=== PATIENT | female | born 1985 | race Caucasian/White ===

== ENCOUNTER → 2017-12-22 10:21 | Outpatient (CLI) | payer SELFPAY ==
[2017-12-22 11:12] LABS: Hematocrit 32.5 % (37-47); Hemoglobin 10.6 g/dl (12.0-15.0); Mean Corp Hgb Conc 32.6 g/gl (32-36); Mean Corpuscular Hgb 30.5 pg (27.0-32.0); Mean Corpuscular Volume 93.4 fL (81-99); Mean Platelet Vol. 10.3 fl (6.2-12.0); Platelet Count 174 K/mm3 (150-450); RBC Distribution Width CV 13.3 % (11.6-14.6); RBC Distribution Width SD 44.5 fl (35.1-43.9); Red Blood Count 3.48 M/mm3 (4.2-5.4)
[2017-12-22 11:13] LABS: Scan Indicated on CBC? Y/N NO
[2017-12-22 11:14] LABS: Glucose Challenge Gest 1H 50g 81 mg/dL (70-140)
== END ==
PROVIDERS: Visit Provider Obstetrics & Gynecology
DX: Z34.83 Encounter for supervision of other normal pregnancy, third trimester (principal)
CPT/HCPCS: 36415; 82950; 85027

== ENCOUNTER → 2017-12-25 14:58 | Outpatient (CLI) | payer SELFPAY | PROVIDERS: Visit Provider Obstetrics & Gynecology | DX: N39.0 Urinary tract infection, site not specified (principal) | CPT/HCPCS: 87086; 87088 ==

== ENCOUNTER → 2018-02-20 11:47 | Outpatient (CLI) | payer SELFPAY ==
[2018-02-20 15:03] LABS: Group B Strep DNA By PCR POSITIVE (Negative); Probe Check PASS
== END ==
PROVIDERS: Visit Provider Obstetrics & Gynecology
DX: Z36.85 Encounter for antenatal screening for Streptococcus B (principal)
CPT/HCPCS: 87653

== ENCOUNTER 2018-03-23 01:55 | Inpatient (IN) | payer SELFPAY ==
[2018-03-23 02:35] VITALS: BMI 24.0
[2018-03-23] MEDS: Lactated Ringers 1,000 ML 50 ML IV (02:35)
[2018-03-23 02:52] LABS: Hematocrit 34.5 % (37-47); Hemoglobin 11.7 g/dl (12.0-15.0); Mean Corp Hgb Conc 33.9 g/gl (32-36); Mean Corpuscular Hgb 30.5 pg (27.0-32.0); Mean Corpuscular Volume 89.8 fL (81-99); Mean Platelet Vol. 11.5 fl (6.2-12.0); Platelet Count 124 K/mm3 (150-450); RBC Distribution Width SD 42.1 fl (35.1-43.9); Red Blood Count 3.84 M/mm3 (4.2-5.4); White Blood Count 9.9 K/mm3 (4.4-11.0)
[2018-03-23 02:54] LABS: Scan Indicated on CBC? Y/N NO
[2018-03-23] MEDS: Oxytocin 30 units/NS 500 ml 30 UNITS/500 ML IV.SOLN 334 UNITS IV (05:41)
--- NOTE | 2018-03-23 05:56 | PCM.OB.VAG ---
Vaginal Delivery Maternal Presentation: Active Labor 41 1/7 wk EGA labor Amniotic Membrane Rupture Type: Artificial Amniotic Fluid Description: Clear Final YO: 03/15/18 Final YO Source: [place] <20 weeks Gestational age: 41 Weeks and 1 Days Date of Procedure: 03/23/18 Pre-Operative Diagnosis: 41 1/7 wk labor Post-Operative Diagnosis: same Surgery/ Procedure Performed: Spontaneous Vaginal Delivery Type of Anesthesia: None Description of Procedure: of a galdamez viable female Head delivered OFELIA OP and nares bulb suctioned at delivery. No nuchal cord. Shoulders delivered easily. Vigorous infant to maternal abdomen. Delayed cord clamping. Cord clamped x two and cut, Ap 8/9 PP exam: 2nd deg perineal laceration, repaired wtih local 1/% lidocaine. with 3-0 Vicryl to hemostatic, intact Placenta delivered by spont expulsion. 3v cord, normal appearing, trailing membranes. EBL 400 cc Pt and tolerated delivery well. To recovery , stable condition Ray Ewa counts correct. Presentation: Vertex, OFELIA Placental Delivery Description: Spontaneous, Expressed Placenta Disposition: [facility] Cord Vessel Description: 3 Vessels Cord Entanglement: None Estimated Blood Loss: 400 A gender: Female (1 minute): 8 (5 minute): 9 Episiotomy Description: None Laceration: Perineal Extension/lac, 2nd degree Medications given after delivery: IV Pitocin Complications: None
--- NOTE | 2018-03-23 06:05 | PCM.DCVAG ---
Discharge Diet: No Restrictions Discharge Activity: May Shower, May Take a Tub Bath May resume sexual activity in: 4-6 weeks Additional Activity Instructions:: Nothing in the vagina for 4-6 weeks. You may return to work/school in 6 weeks. Additional Instructions: If you experience any of the following, contact your healthcare provider. Bleeding that soaks a pad every hour for 2 hours Fever 100.4 or higher Unrelieved abdominal pain Problems urinating (including inability to urinate or burning while urinating). Visual changes Severe headache Flu-like symptoms Pain or redness in one of both of your breasts Pain, warmth, tenderness or swelling in your legs, especially the calf area Frequent nausea and vomiting Symptoms of depression or anxiety If you experience any of the following, call 911 or go to the nearest Emergency Room. Chest pain Problems breathing Seizure activity Partial or complete paralysis of a body part, slurred speech, weakness or drooping of the face, or a sudden inability to walk or hold your balance Allergies/Adverse Reactions: Allergies No Known Allergies Allergy (Verified 03/23/18 02:39) Medications to take at Discharge #92/Iron/FA #8/Ps-Dha [Enbrace Hr Softgel] 1 each PO DAILY 02/01/16 Please Follow Up With: Cecilia Morataya MD - [phone] When: Call to make an appointment with your doctor in 6 weeks. Proposed Discharge Date: 03/25/18
--- NOTE | 2018-03-23 06:06 | DCINST_ITS ---
Discharge Diet: No Restrictions Discharge Activity: May Shower, May Take a Tub Bath May resume sexual activity in: 4-6 weeks Additional Activity Instructions:: Nothing in the vagina for 4-6 weeks. You may return to work/school in 6 weeks. Additional Instructions: If you experience any of the following, contact your healthcare provider. * Bleeding that soaks a pad every hour for 2 hours * Fever 100.4 or higher * Unrelieved abdominal pain * Problems urinating (including inability to urinate or burning while urinating) . * Visual changes * Severe headache * Flu-like symptoms * Pain or redness in one of both of your breasts * Pain, warmth, tenderness or swelling in your legs, especially the calf area * Frequent nausea and vomiting * Symptoms of depression or anxiety If you experience any of the following, call 911 or go to the nearest Emergency Room. * Chest pain * Problems breathing * Seizure activity * Partial or complete paralysis of a body part, slurred speech, weakness or drooping of the face, or a sudden inability to walk or hold your balance Allergies/Adverse Reactions: Allergies No Known Allergies Allergy (Verified 03/23/18 02:39) Medications to take at Discharge #92/Iron/FA #8/Ps-Dha [Enbrace Hr Softgel] 1 each PO DAILY 02/01/16 Please Follow Up With: Cecilia Morataya MD - [phone] When: Call to make an appointment with your doctor in 6 weeks. Proposed Discharge Date: 03/25/18
[2018-03-23] MEDS: Oxytocin 30 units/NS 500 ml 30 UNITS/500 ML IV.SOLN 167 UNITS IV (06:11)
[2018-03-23] MEDS: Naproxen 250 MG Tablet PO ×2 (07:13→18:27)
[2018-03-23 08:00] VITALS: BP 91/54; PULSE 63; RESP 18; TEMP 37.1
[2018-03-23] MEDS: 0.9% Saline Lock 10 ML Syringe IV (09:05)
[2018-03-23 13:30] VITALS: BP 97/59; PULSE 66; RESP 20; TEMP 36.8; O2SAT 98
[2018-03-23] MEDS: Hydrocortisone 2.5% Crm 1 APPLIC TOPICAL (18:29)
[2018-03-23 18:30] VITALS: BP 97/70; PULSE 88; TEMP 36.7; O2SAT 98
[2018-03-23 20:01] VITALS: BP 96/56; PULSE 54; RESP 16; TEMP 36.8; O2SAT 99
[2018-03-24 00:23] VITALS: BP 95/54; PULSE 56; RESP 16; TEMP 36.3; O2SAT 100
[2018-03-24 03:55] VITALS: BP 88/45; PULSE 55; RESP 16; TEMP 36.6; O2SAT 99
--- NOTE | 2018-03-24 07:14 | PCM.PN.OB ---
Subjective: PPD#1 Tearful, baby nursing all night and very little sleep. OK with staying until tomorrow - Physical Exam General: Alert, Oriented x3, Cooperative, No apparent distress HEENT: Atraumatic Neck: Supple Abdomen: Soft - Fundus firm NT at 2 cm inferior to umbilicus Neurological: Cranial nerves II-XII grossly intact Psych/Mental Status: Normal Affect Vital Signs Temp Pulse Resp BP Pulse Ox 97.8 F 55 L 16 88/45 L 99 03/24/18 03:55 03/24/18 03:55 03/24/18 03:55 03/24/18 03:55 03/24/18 03:55 Oxygen Delivery Method Room Air Weight: 61.689 kg Body Mass Index (BMI) 24.0 Intake and Output for Last 24 Hours 03/22/18 03/23/18 03/24/18 23:59 23:59 23:59 Intake Total 334 / 334 Output Total 700 / 700 Balance -366 / -366 Medical Necessity - Tobacco Use Smoking Status: Never smoker Assessment/Plan PPD#1 Stable pp, fatigued and tearful today d/t baby up all night and cluster feeding. Encouraged rest, baby to nursery. Continue care
[2018-03-24] MEDS: Senna/Docusate Sodium 1 Tablet PO (08:41)
[2018-03-24] MEDS: Prenatal Vits Tablet 1 TABLET PO (08:42)
[2018-03-24] MEDS: Naproxen 250 MG Tablet PO ×2 (08:42→18:29)
[2018-03-24 09:07] VITALS: BP 96/57; PULSE 65; RESP 16; TEMP 36.7; O2SAT 95
[2018-03-24 14:39] VITALS: BP 96/58; PULSE 66; RESP 16; TEMP 36.7; O2SAT 100
[2018-03-24 19:50] VITALS: BP 103/54; PULSE 61; RESP 16; TEMP 36.3
[2018-03-25 01:25] VITALS: BP 94/59; PULSE 55; RESP 16; TEMP 36.5
[2018-03-25] MEDS: Naproxen 250 MG Tablet PO (03:18)
--- NOTE | 2018-03-25 03:54 | NURSING ---
RN called to pt room for assistance with . this RN entered pt room to infant crying and pt in tears. pt attempting to hand express onto spoon due to sore nipples and engorgement. pt set up to pump with pump brought in from home - for comfort and to decrease tightness in breast. pt pumped 12 cc of breast milk. educated on latching and ways to help engorgement when at home. Jaimee Feliciano RN from [facility] unit located on unit came to evaluate pt - [place] has experience.
--- NOTE | 2018-03-25 07:47 | PCM.PN.OB ---
Objective: PPD#2 Doing well. Much better than yesterday as she is better rested today. Milk is in. Nursing well. - Physical Exam General: Alert, Oriented x3, Cooperative, No apparent distress HEENT: Atraumatic Neck: Supple Abdomen: Soft - Fundus firm NT at umbilcus - 2-3 cm. Neurological: Cranial nerves II-XII grossly intact Psych/Mental Status: Normal Affect Vital Signs Temp Pulse Resp BP Pulse Ox 97.7 F L 55 L 16 94/59 L 100 03/25/18 01:25 03/25/18 01:25 03/25/18 01:25 03/25/18 01:25 03/24/18 14:39 Oxygen Delivery Method Room Air Weight: 61.689 kg Body Mass Index (BMI) 24.0 Intake and Output for Last 24 Hours 03/23/18 03/24/18 03/25/18 23:59 23:59 23:59 Intake Total 334 / 334 Output Total 700 / 700 Balance -366 / -366 Medical Necessity - Tobacco Use Smoking Status: Never smoker Assessment/Plan PPD#2 Stable pp, D/c home today. RTO in 6 wk for pp check, prn sooner.
[2018-03-25 08:00] VITALS: BP 105/63; PULSE 78; RESP 20; TEMP 37; O2SAT 96
== END 2018-03-25 10:20 | disposition home or self-care (01) | DRG 775 ==
PROVIDERS: Admitting Provider Obstetrics & Gynecology; Visit Provider Obstetrics & Gynecology
DX: O48.0 Post-term pregnancy (principal); O70.1 Second degree perineal laceration during delivery; O99.824 Streptococcus B carrier state complicating childbirth; O99.02 Anemia complicating childbirth; D64.9 Anemia, unspecified; Z3A.41 41 weeks gestation of pregnancy; Z37.0 Single live birth
CPT/HCPCS: 59025; 59050; 85027; 86850; 86900; 99218; J7120; A4216; G0378

== ENCOUNTER 2018-03-26 12:00 | Outpatient (CLI) | payer SELFPAY | END 2018-03-26 12:14 | disposition home or self-care (01) | LOC: WP 03-27 14:57 → WPOUT 03-27 14:57 | PROVIDERS: Visit Provider Obstetrics & Gynecology | DX: Z39.1 Encounter for care and examination of lactating mother (principal) | CPT/HCPCS: 96152 ==

== ENCOUNTER → 2022-11-02 | Outpatient (CLI) | payer OTHER, SELFPAY ==
[2022-11-02 16:51] LABS: Vitamin B12 988 pg/mL (211-911)
[2022-11-02 17:04] LABS: Estradiol 49.1 pg/mL; Ferritin 9 ng/mL (8-252); Follicle Stimulating Hormone 6.7 mIU/mL; Luteinizing Hormone 15.5 mIU/mL; T4 Free Direct 0.96 ng/dL (0.76-1.46); Thyroid Stim Hormone (TSH) 1.36 uIU/mL (0.358-3.74)
[2022-11-08 20:34] LABS: HPV APTIMA, High Risk Negative (Negative)
[2022-11-10 12:08] LABS: Testosterone, Total 20 ng/dL (8-60)
[2022-11-10 14:55] LABS: Testosterone, % Free 0.52 % (0.50-2.80)
== END | disposition home or self-care (01) ==
PROVIDERS: Visit Provider Student in an Organized Health Care Education/Training Program
DX: Z12.4 Encounter for screening for malignant neoplasm of cervix (principal); L65.9 Nonscarring hair loss, unspecified
CPT/HCPCS: 36415; 82607; 82670; 82728; 82746; 83001; 83002; 84402; 84403; 84439; 84443; 87624; 88175; G0145